=== PATIENT | male | born 1980 | race Caucasian/White ===

== ENCOUNTER 2020-03-29 14:52 | Emergency (ER) | payer OTHER, SELFPAY ==
[2020-03-29 14:54] VITALS: BP 139/87; PULSE 103; RESP 18; TEMP 36.3; O2SAT 96
--- NOTE | 2020-03-29 15:09 | ED.GENADULT ---
HPI - General Adult General Chief complaint: Skin/Abscess/Foreign Body <Roman Montalvo PA-C - Last Filed: 03/29/20 15:17> Stated complaint: Heat rash <Roman Montalvo PA-C - Last Filed: 03/29/20 15:17> Time Seen by Provider: 03/29/20 14:58 <Roman Montalvo PA-C - Last Filed: 03/29/20 15:17> Source: patient <Roman Montalvo PA-C - Last Filed: 03/29/20 15:17> Mode of arrival: ambulatory <Roman Montalvo PA-C - Last Filed: 03/29/20 15:17> Limitations: no limitations <Roman Montalvo PA-C - Last Filed: 03/29/20 15:17> History of Present Illness HPI narrative: Patient is a 39-year-old male who presents with several days duration of rash that is on the extremities noting 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 Patient denies other complaints has not taken anything for his symptoms and presents in no distress. <Roman Montalvo PA-C - Last Filed: 03/29/20 15:17> Related Data Allergies/adverse reactions: Allergies Allergy/AdvReac Type Severity Reaction Status Date / Time Penicillins Allergy Unknown Unknown Verified 03/29/20 14:57 <Roman Montalvo PA-C - Last Filed: 03/29/20 15:17> Review of Systems Review of Systems: All systems reviewed & are unremarkable except as noted in HPI and below <Roman Montalvo PA-C - Last Filed: 03/29/20 15:17> [facility] Social History Social History: Social History (Updated 03/29/20 @ 15:11 by Roman Montalvo PA-C) Smoking status: Never smoker Gender identity (if verbalized by the patient): Male <EONCH Crespo Last Filed: 03/29/20 15:17> Exam Narrative: Exam Narrative: GENERAL: Well-appearing, well-nourished, and in no acute distress. HEAD: Normocephalic, atraumatic. EYES: PERRLA and EOMI. ENT: Nares clear, no rhinorrhea or epistaxis. Mucous membranes moist. EXTREMITIES: Normal range of motion. SKIN: Warm, dry, patient with macular rash on the extremities and torso in the room in no distress NEURO: Normal speech and gait. alert and oriented x3. PSYCH: Normal mood and affect. <ENOCH Crespo Last Filed: 03/29/20 15:17> Course Course Emergency Course: Patient in the room in no distress aware of case findings treatment plan and diagnosis <Roman Montalvo PA-C - Last Filed: 03/29/20 15:17> Vital Signs Vital signs: Vital Signs Temperature 36.3 C L 03/29/20 14:54 Pulse Rate 103 H 03/29/20 14:54 Respiratory Rate 18 03/29/20 14:54 Blood Pressure 139/87 03/29/20 14:54 Pulse Oximetry 96 03/29/20 14:54 Temperature 36.3 C L 03/29/20 14:54 Pulse Rate 103 H 03/29/20 14:54 Respiratory Rate 18 03/29/20 14:54 Blood Pressure 139/87 03/29/20 14:54 Pulse Oximetry 96 03/29/20 14:54 <Roman Montalvo PA-C - Last Filed: 03/29/20 15:17> Vital Signs Temperature 36.3 C L 03/29/20 14:54 Pulse Rate 103 H 03/29/20 14:54 Respiratory Rate 18 03/29/20 14:54 Blood Pressure 139/87 03/29/20 14:54 Pulse Oximetry 96 03/29/20 14:54 Temperature 36.3 C L 03/29/20 14:54 Pulse Rate 103 H 03/29/20 14:54 Respiratory Rate 18 03/29/20 14:54 Blood Pressure 139/87 03/29/20 14:54 Pulse Oximetry 96 03/29/20 14:54 <Meg Enriquez MD - Last Filed: 03/29/20 15:56> Medical Decision Making MDM Narrative Medical decision making narrative: Patient with rash which could be contact dermatitis versus heat rash in the room in no distress felt appropriate for discharge home for further evaluation on outpatient basis <ENOCH Crespo Last Filed: 03/29/20 15:17> Vital Signs Vital Signs: Vital Signs Temperature 36.3 C L 03/29/20 14:54 Pulse Rate 103 H 03/29/20 14:54 Respiratory Rate 18 03/29/20 14:54 Blood Pressure 139/87 03/29/20 14:54 Pulse Oximetry 96 03/29/20 14:54 Temperature 36.3 C L 03/29/20
== END 2020-03-29 15:58 | disposition home or self-care (01) ==
PROVIDERS: Emergency Provider Emergency Medicine
DX: R21 Rash and other nonspecific skin eruption (principal)
CPT/HCPCS: 99283

== ENCOUNTER 2020-04-14 22:29 | Emergency (ER) | payer OTHER, SELFPAY ==
[2020-04-14 22:32] VITALS: BP 138/100; PULSE 87; RESP 18; TEMP 36.7; O2SAT 98
--- NOTE | 2020-04-14 22:56 | ED.GENADULT ---
HPI - General Adult General Chief complaint: Skin/Abscess/Foreign Body <Roman Montalvo PA-C - Last Filed: 04/14/20 23:00> Stated complaint: rash <Roman Montalvo PA-C - Last Filed: 04/14/20 23:00> Time Seen by Provider: 04/14/20 22:52 <Roman Montalvo PA-C - Last Filed: 04/14/20 23:00> Source: patient and family <Roman Montalvo PA-C - Last Filed: 04/14/20 23:00> Mode of arrival: ambulatory <Roman Montalvo PA-C - Last Filed: 04/14/20 23:00> Limitations: no limitations <ENOCH Crespo Last Filed: 04/14/20 23:00> History of Present Illness HPI narrative: Patient is a 39-year-old male who presents to emergency department for evaluation of rash to the upper and lower extremities which has been present now for several weeks had been seen in the emergency department took medications with improvement unsure as to the etiology of the rash but it has persisted primary complaint is itching patient notes excoriations from the itching has not followed with primary care denies any sick contacts or exposures <Roman Montalvo PA-C - Last Filed: 04/14/20 23:00> Related Data Allergies/adverse reactions: Allergies Allergy/AdvReac Type Severity Reaction Status Date / Time Penicillins Allergy Unknown Unknown Verified 04/14/20 22:44 <Roman Montalvo PA-C - Last Filed: 04/14/20 23:00> Review of Systems Review of Systems: All systems reviewed & are unremarkable except as noted in HPI and below <Roman Montalvo PA-C - Last Filed: 04/14/20 23:00> [facility] Social History Social History: Social History Smoking status: Never smoker Gender identity (if verbalized by the patient): Male <ENOCH Crespo Last Filed: 04/14/20 23:00> Exam Narrative: Exam Narrative: GENERAL: Well-appearing, well-nourished, and in no acute distress. HEAD: Normocephalic, atraumatic. EYES: PERRLA and EOMI. ENT: Nares clear, no rhinorrhea or epistaxis. Mucous membranes moist. EXTREMITIES: Normal range of motion. No edema. SKIN: Warm, dry, patient with excoriations to the upper and lower extremities no erythema NEURO: No focal deficits. Alert and oriented x3. PSYCH: Normal mood and affect. 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 <Roman Montalvo PA-C - Last Filed: 04/14/20 23:00> Vital Signs Vital signs: Vital Signs Temperature 98.1 F 04/14/20 22:32 Pulse Rate 87 04/14/20 22:32 Respiratory Rate 18 04/14/20 22:32 Blood Pressure 138/100 H 04/14/20 22:32 Pulse Oximetry 98 04/14/20 22:32 Temperature 98.1 F 04/14/20 22:32 Pulse Rate 87 04/14/20 22:32 Respiratory Rate 18 04/14/20 22:32 Blood Pressure 138/100 H 04/14/20 22:32 Pulse Oximetry 98 04/14/20 22:32 <Roman Montalvo PA-C - Last Filed: 04/14/20 23:00> Vital Signs Temperature 98.1 F 04/14/20 22:32 Pulse Rate 87 04/14/20 22:32 Respiratory Rate 18 04/14/20 22:32 Blood Pressure 138/100 H 04/14/20 22:32 Pulse Oximetry 98 04/14/20 22:32 Temperature 98.1 F 04/14/20 22:32 Pulse Rate 87 04/14/20 22:32 Respiratory Rate 18 04/14/20 22:32 Blood Pressure 138/100 H 04/14/20 22:32 Pulse Oximetry 98 04/14/20 22:32 <Abby Rivera MD - Last Filed: 04/14/20 23:09> Medical Decision Making MDM Narrative Medical decision making narrative: Patients injury or pain is consistent with musculoskeletal etiology. No signs of neurological or vascular compromise on exam. Compartments and tisues are soft without signs of compartment syndrome. Pain is felt appropriate for further evaluation on an outpatient basis. <ENOCH Crespo Last Filed: 04/14/20 23:00> Vital Signs Vital Signs: Vital Signs Temperature 98.
[2020-04-14] MEDS: FAMOTIDINE 20 MG TABLET PO (23:20)
[2020-04-14] MEDS: predniSONE 20 MG TABLET 60 MG PO (23:20)
[2020-04-14 23:24] VITALS: BP 138/95; PULSE 80; RESP 20; O2SAT 98
== END 2020-04-14 23:26 | disposition home or self-care (01) ==
PROVIDERS: Emergency Provider Emergency Medicine
DX: R21 Rash and other nonspecific skin eruption (principal)
CPT/HCPCS: 99283; A9270; J7512

== ENCOUNTER 2020-04-25 01:00 | Emergency (ER) | payer OTHER, SELFPAY ==
--- NOTE | ~2020-04-25 | XR_ITS ---
EXAMINATION: XR knee LT min 4V DATE: 04/25/2020 01:51 INDICATION: Anterior left knee pain. TECHNIQUE: 4 views of left knee were obtained. COMPARISON: None. FINDINGS: Bone alignment is normal. No fracture. There is mild osteoarthritis of lateral compartment characterized by a tiny marginal osteophyte. No knee joint effusion. There is anterior knee soft tiss ue swelling. IMPRESSION: 1. Mild left knee osteoarthritis. 2. Anterior knee soft tissue swelling, consistent with bursitis. Reviewed, dictated and finalized at location A.
[2020-04-25 01:02] VITALS: BP 138/81; PULSE 108; RESP 19; TEMP 37.5; O2SAT 98
[2020-04-25] MEDS: IBUPROFEN 400 MG TABLET 800 MG PO (01:26)
--- NOTE | 2020-04-25 01:29 | ED.LOWEXIN ---
HPI - Extremity Injury (Lower) General Chief Complaint: Extremity Injury, Lower Stated Complaint: Left leg pain Time Seen by Provider: 04/25/20 01:11 Source: patient Mode of arrival: ambulatory Limitations: no limitations History of Present Illness HPI Narrative: 39 year old male who presents for evaluation of left knee pain. Patient reports he was taking a shower when he developed sudden onset left knee pain. He states he was standing when he noticed pain to his knee. He reports he saw redness. He denies any injury. He denies nausea, vomiting, fever or chills. He has not taken anything for pain. 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 Related Data Allergies Allergy/AdvReac Type Severity Reaction Status Date / Time Penicillins Allergy Unknown Unknown Verified 04/25/20 01:27 Review of Systems Review of Systems: All systems reviewed & are unremarkable except as noted in HPI and below Respiratory: Respiratory: Denies cough and Denies dyspnea Gastrointestinal: Gastrointestinal: Denies abdominal pain and Denies nausea Musculoskeletal: Musculoskeletal: Reports arthralgias and Reports joint swelling [facility] Past Medical History Medical History (Updated 04/25/20 @ 02:48 by Priya Martin MD) Anxiety Depression Social History Social History Smoking status: Never smoker Gender identity (if verbalized by the patient): Male Exam Const: General: alert Orientation/consciousness: patient oriented x3 HENMT: Head: normocephalic and atraumatic General nose exam: Normal nares present Face and sinus: face symmetric Eyes: EOM: EOMs intact bilaterally Resp: Effort & Inspection: normal respiratory effort Neuro: General: patient oriented x3 and moves all extremities Extrem: Other: FROM of his knee, there is small pustule infrapatella with patella tenderness and redness anterior, no tenderness at joint space Psych: Affect: Anxious affect present Course Reevaluation(s) Reevaluation #1: PAtient be treated for cellulitis, bursitis. I Do not believe this septic arthritis. Date: 04/25/20 Time: 02:47 Vital Signs Vital signs: Vital Signs Temperature 99.5 F 04/25/20 01:02 Pulse Rate 108 H 04/25/20 01:02 Respiratory Rate 19 04/25/20 01:02 Blood Pressure 138/81 04/25/20 01:02 Pulse Oximetry 98 04/25/20 01:02 Temperature 99.6 F 04/25/20 03:00 Pulse Rate 96 04/25/20 03:00 Respiratory Rate 18 04/25/20 03:00 Blood Pressure 140/80 04/25/20 03:00 Pulse Oximetry 97 04/25/20 03:00 MDM - Extremity Injury (Lower) Imaging Data My impression: left knee xray- no fracture, there is sts swelling Discharge Plan Discharge Clinical Impression: Cellulitis of knee, left Patient Disposition: Home, Self-Care Condition: Stable Instructions: Antibiotic Form, Cellulitis (ED), Knee Bursitis (ED) Additional Instructions: Take medication as prescribed. Apply ice in 20 minute increments 4 times a day to help with pain and swelling. If your redness and swelling get worsen after 48 hours of medication return to ER. Prescriptions: New cefuroxime axetil 500 mg tablet 500 mg PO Q12H Qty: 14 RF: 0 ibuprofen 800 mg tablet 800 mg PO Q6H PRN (Reason: pain) Qty: 20 RF: 0 Follow-up/Referrals: Mervat Abraham MD [Physician] - PHYSICIAN,[employer] [Primary Care Provider] - Stand Alone Forms: Work/School Release IP Discharge Date/Time: 04/25/20 03:00
[2020-04-25] MEDS: CEFUROXIME AXETIL 250 MG TABLET 500 MG PO (02:00)
[2020-04-25 03:00] VITALS: BP 140/80; PULSE 96; RESP 18; TEMP 37.6; O2SAT 97
== END 2020-04-25 03:00 | disposition home or self-care (01) ==
PROVIDERS: Emergency Provider General Practice
DX: L03.116 Cellulitis of left lower limb (principal)
CPT/HCPCS: 73564; 99283; A9270